=== PATIENT | female | born 1990 | race Caucasian/White ===

== ENCOUNTER → 2019-01-11 | Emergency (ER) | payer MEDICAID ==
[~2019-01-11] VITALS: Ht 160 cm; Wt 63.6 kg
[2019-01-11 17:33] VITALS: BP 114/68
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
== END | disposition home or self-care (01) ==
LOC: ER 17:20
DX: L02.11 Cutaneous abscess of neck (principal); F15.90 Other stimulant use, unspecified, uncomplicated; F11.90 Opioid use, unspecified, uncomplicated; Z56.0 Unemployment, unspecified; Z59.0 Homelessness; Z60.2 Problems related to living alone
CPT/HCPCS: 99281

== ENCOUNTER 2019-06-23 02:57 | Emergency (ER) | payer MEDICAID ==
[~2019-06-23] VITALS: Ht 165.1 cm; Wt 59.1 kg
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
[2019-06-23] MEDS ORDERED: LORazepam 2 mg/ml vial IM ONE (03:35)
--- NOTE | 2019-06-23 07:40 | NUR ---
Pt hypotensive on monitor. Researched pt past VS since presenting tot ED, and found pt to be noted hypertyensive in the 140's. Pulled history on ekg monitor tech and found these to be in error. Pt BP 90-112 systolic since presentation to the ED. construction mgr notified, VS strip placed in chart.
[2019-06-23 11:17] VITALS: BP 114/56
== END 2019-06-23 11:46 | disposition home or self-care (01) ==
LOC: ER 03:01
DX: T40.1X1A Poisoning by heroin, accidental (unintentional), initial encounter (principal); T43.621A Poisoning by amphetamines, accidental (unintentional), initial encounter; Z60.2 Problems related to living alone; Z59.0 Homelessness; Z56.0 Unemployment, unspecified; Y92.89 Other specified places as the place of occurrence of the external cause
CPT/HCPCS: 71045; 96372; 99283; J2060